=== PATIENT | male | born 1945 | race Caucasian/White ===

== ENCOUNTER 2020-10-20 11:43 | Emergency (ER) | payer MEDICARE, SELFPAY ==
[2020-10-20 11:48] VITALS: BP 104/59; PULSE 56; RESP 16; TEMP 36.6; O2SAT 95; BMI 27.3
--- NOTE | 2020-10-20 12:45 | ECG_ITS ---
[facility] Test Date: 2020-10-20 Pat Name: Reuben Casanova Department: Room: Gender: Male Machine Set Up Operator: : 1945 Requested By: Andrew Huntley Order Number: [id number] Kendrick MD: James Morales M.D. Measurements Intervals [place] Rate: 56 P: DE: QRS: -30 QRSD: 74 T: 36 QT: 402 QTc: 388 Interpretive Statements SUPRAVENTRICULAR BRADYCARDIA-possibly sinus BORDERLINE LEFT AXIS DEVIATION [QRS AXIS < -20] MODERATE VOLTAGE CRITERIA FOR LVH, CONSIDER NORMAL VARIANT [MEETS CRITERIA IN ONE OF: R(aVL), S(V1), R(V5), R(V5/V6)+S(V1)] NONSPECIFIC ST & T-WAVE ABNORMALITY ABNORMAL RHYTHM ECG INTERPRETATION BASED ON A DEFAULT AGE OF 40 YEARS Compared to ECG 02/17/2018 22:00:11 Sinus bradycardia no longer present First degree AV block no longer present T-wave abnormality still present Electronically Signed On 10-20-2020 23:47:55 CDT by James Morales M.D. [email or web address] PartnersBoutique Windowcleveland [facility].[employer]qua/store/NU/[id number] bird
--- NOTE | 2020-10-20 12:45 | XRR_ITS ---
PROCEDURE INFORMATION: Exam: XR Chest Exam date and time: 10/20/2020 1:00 PM Age: 75 years old Clinical indication: Left-sided; Patient HX: Chest pain to left x 4 days, shortness of breath TECHNIQUE: Imaging protocol: XR of the chest. Views: 1 view. COMPARISON: CT Chest/Abdomen/Pelvis w IV* 09/24/2018 10:58 AM FINDINGS: Lungs: There is consolidation in the mid left lung which extends to the pleura. The right lung is clear. Pleural spaces: Unremarkable. No pleural effusion. No pneumothorax. Heart/Mediastinum: Unremarkable. No cardiomegaly. Bones/joints: Unremarkable. XR/XR chest 1V portable [id number] IMPRESSION: There is consolidation in the mid left lung which extends to the pleura consistent with pneumonia, mass and/or infarct.If there is desire for further evaluation, a CT scan could be performed.
[2020-10-20 13:07] VITALS: PULSE 56
--- NOTE | 2020-10-20 13:08 | ED_ITS ---
HPI - Chest Pain General: Chief Complaint: Chest Pain Stated Complaint: CP X 4 DAYS Time Seen by Provider: 10/20/20 12:43 History of Present Illness: HPI narrative: 75-year-old male presents emergency room complaining of chest pain for the last 4 days. He has a known history ofChronic lymphocytic leukemia. He also is a smoker and continues to smoke daily. Patient has a known history of coronary artery disease with previous PCI. He also has history of hypertension hyperlipidemia and bradycardia. He denies any fever sweats or chills. MD complaint: chest pain Pertinent past history: coronary artery disease Onset (ago): day(s) (4) Timing of current episode: episodic Prior episodes: Yes Onset: during rest Pain location: left chest Pain radiation: none Severity: mild Quality: aching and heaviness Relieving factors: nothing Exacerbating factors: nothing Associated symptoms: Reports dyspnea; Deny abdominal pain, diaphoresis, fever(s), leg edema, nausea, palpitations, sense of impending doom, syncope or vomiting Treatment prior to arrival: none Review of Systems Const: Denies: fever(s) or diaphoresis ENMT: Denies: throat pain, ear or mastoid pain, nasal discharge or nasal congestion Card: Denies: palpitations or syncope Resp: Reports: dyspnea GI: Denies: abdominal pain, nausea or vomiting : Denies: flank pain, dysuria, urinary frequency or urinary urgency Skin/Breast: Denies: rash or pruritus PFSH ED PFSH: Medical History Aortic valve sclerosis Atherosclerotic heart disease of [place] coronary artery without angina pectoris Yen palsy Benign essential HTN Bradycardia CAD (coronary artery disease) Cervical spondylosis Chest pain DDD (degenerative disc disease) Diverticulosis Dyslipidemia GERD (gastroesophageal reflux disease) Hemorrhoids Hepatomegaly History of hypertension Hx of coronary atherosclerosis Hx of hyperlipidemia Hx of myocardial infarction NSTEMI (non-ST elevated myocardial infarction) Palpitations Surgical History H/O colonoscopy History of PTCA History of spinal fusion Family History Father CAD (coronary artery disease) Dementia Mother Cancer Brother CAD (coronary artery disease) Cancer Diabetes Stroke Sister CAD (coronary artery disease) Cancer Diabetes Family/Other CAD (coronary artery disease) Cancer Diabetes Other Hypertension Denies family history of Clotting disorder Chronic kidney disease (CKD) Suicide Anesthesia complication Bleeding disorder Lung disease Social History Smoking and tobacco status: current every day smoker cigarettes Alcohol intake: current Alcohol intake frequency: 0-2 Drinks per Day Physical Exam Const: COMMON NORMALS: no acute distress GENERAL APPEARANCE: cooperative and comfortable ORIENTATION/CONSCIOUSNESS: Yes awake, Yes oriented to person, Yes oriented to place and Yes oriented to time HENMT: COMMON NORMALS: normocephalic, atraumatic and hearing grossly normal bilaterally HEAD & SCALP: normocephalic and atraumatic Neck/C-Spine: COMMON NORMALS: no JVD Resp: COMMON NORMALS: normal respiratory effort, No retractions, No use of accessory muscles and clear to auscultation bilaterally AUSCULTATION: clear to auscultation bilaterally Cardio: COMMON NORMALS: no JVD, regular rate, regular rhythm and No murmurs present (Cardio) RATE: regular rate RHYTHM: regular rhythm GI: COMMON NORMALS: Soft to palpation and No hepatosplenomegaly present AUSCULTATION: Yes normoactive bowel sounds PALPATION: Yes Soft to palpation, No Tenderness to palpation present (GI), No Guarding due to palpation present (GI) and Yes No hepatosplenomegaly present Extremity: COMMON NORMALS: normal to inspection, capillary refill normal, no clubbing, cyanosis or edema, no calf tenderness and no pedal edema Neuro: SENSORIUM/ORIENTATION: Yes oriented to person, Yes oriented to place and Yes oriented to time Skin: COMMON NORMALS: no rashes or lesions noted GENERAL SKIN EXAM: no rashes or lesions noted Course Vital Signs: Vital signs: Vital Signs Temperature 97.9 F 10/20/20 11:48 Pulse Rate 57 L 10/20/20 15:34 Respiratory Rate 20 H 10/20/20 15:34 Blood Pressure 87/62 10/20/20 15:34 Pulse Oximetry 93 10/20/20 15:34 MDM - Chest Pain MDM Narrative: Medical decision making narrative: Cultures done start antibiotics admit for pneumonia with CLL discussed with hospitalist. Orders were written. When I discussed to the patient he absolutely refuses to be admitted I discussed the risks of him leaving early. He obviously has pneumonia and he has an acute flare of his CLL. He needs to be reevaluated by oncology concerned with his CLL and the states that it is that he will not be able to be effectively treated for pneumonia on an outpatient basis he refuses to be admitted he acknowledges the possibility of this advancing even causing . I encouraged him to stay despite all this you can he insists on leaving. He was advised he could return at any time we will gladly reevaluate and treat. Lab Data: Labs: Lab Results 10/20/20 10/20/20 10/20/20 Range/Units 13:09 13:09 13:09 WBC 320.9 H* (4.0-10.0) 10^3/ uL RBC 3.81 L (4.1-5.3) 10^6/u L Hgb 10.5 L (11.7-16.6) g/dL Hct 36.9 L (42.0-52.0) % MCV 96.9 H (80-94) fL MCH 27.6 L (28.0-34.0) pg MCHC 28.5 L (30.0-36.0) g/dL RDW 15.3 H (12.1-15.1) % Plt Count 314 (130-400) 10^3/c mm MPV 9.4 (7.4-10.4) fL Lymph % (Auto) Not Reportable [place] % (Auto) Not Reportable Lymph # (Auto) 281.2 H (0.8-4.8) 10^3/u L [place] # (Auto) Not Reportable Total Counted 100 (0-100) Atypical Lymphs % 0.0 (0-5) % Absolute Neutrophi ls 22.5 H (1.4-6.5) 10^3/c mm Segmented Neutroph ils 7 % Abs Segm Neuts (Ma n) 22.5 H (1.6-7.1) 10/cmm Band Neutrophils 0.0 % Abs Band Neuts (Ma n) 0.0 (0.0-1.2) 10^3/c mm Absolute Lymphocyt es 292.0 H (1.2-3.4) 10^3/c mm Lymphocytes (Manua l) 91 % Monocytes (Manual) 0.0 % Absolute Monocytes 0.0 L (0.1-0.6) 10^3/c mm Eosinophils (Manua l) 0 % Absolute Eosinophi ls 0.0 (0.0-0.7) 10^3/c mm Basophils (Manual) 0.0 % Absolute Basophils 0.0 (0.0-0.2) 10^3/c mm Metamyelocytes 2.0 % Platelet Estimate Normal (Normal) Sodium Cancelled Potassium Cancelled Chloride Cancelled Carbon Dioxide Cancelled Anion Gap Cancelled BUN Cancelled Creatinine Cancelled GFR Calculation Cancelled Glucose Cancelled Calculated Osmolal ity Cancelled Calcium Cancelled Total Bilirubin Cancelled AST Cancelled ALT Cancelled Alkaline Phosphata se Cancelled Creatine Kinase Cancelled Troponin T Baselin e Cancelled NT-Pro-B Natriuret Pep Cancelled Total Protein Cancelled Albumin Cancelled Globulin Cancelled 10/20/20 10/20/20 Range/Units 13:37 13:37 WBC (4.0-10.0) 10^3/ uL RBC (4.1-5.3) 10^6/u L Hgb (11.7-16.6) g/dL Hct (42.0-52.0) % MCV (80-94) fL MCH (28.0-34.0) pg MCHC (30.0-36.0) g/dL RDW (12.1-15.1) % Plt Count (130-400) 10^3/c mm MPV (7.4-10.4) fL Lymph % (Auto) [place] % (Auto) Lymph # (Auto) (0.8-4.8) 10^3/u L [place] # (Auto) Total Counted (0-100) Atypical Lymphs % (0-5) % Absolute Neutrophi ls (1.4-6.5) 10^3/c mm Segmented Neutroph ils % Abs Segm Neuts (Ma n) (1.6-7.1) 10/cmm Band Neutrophils % Abs Band Neuts (Ma n) (0.0-1.2) 10^3/c mm Absolute Lymphocyt es (1.2-3.4) 10^3/c mm Lymphocytes (Manua l) % Monocytes (Manual) % Absolute Monocytes (0.1-0.6) 10^3/c mm Eosinophils (Manua l) % Absolute Eosinophi ls (0.0-0.7) 10^3/c mm Basophils (Manual) % Absolute Basophils (0.0-0.2) 10^3/c mm Metamyelocytes % Platelet Estimate (Normal) Sodium 136 Potassium 4.4 Chloride 100 Carbon Dioxide 21 L Anion Gap 19.4 H BUN 42 H Creatinine 1.1 GFR Calculation Not Reportable Glucose 106 Calculated Osmolal ity 293 Calcium 8.6 Total Bilirubin 0.3 AST 37 ALT 42 H Alkaline Phosphata se 123 Creatine Kinase 176 Troponin T Baselin e 25 H NT-Pro-B Natriuret Pep 284 H Total Protein 7.2 Albumin 3.8 Globulin 3.4 Discharge Plan Discharge Patient Disposition: Left Against Medical Advice Clinical Impression: Pneumonia, Chronic lymphocytic leukemia B-cell type not having achieved remission Condition: Stable Prescriptions: New levofloxacin 750 mg tablet 750 mg PO DAILY 7 Days RF: 0 No Action docusate sodium [Colace] 100 mg capsule 100 mg PO DAILY RF: 0 fluticasone propionate [Flonase Allergy Relief] 50 mcg/actuation spray,suspension 1 spray intranasal DAILY RF: 0 amlodipine 10 mg tablet 10 mg PO DAILY Qty: 90 RF: 1 carvedilol [Coreg] 25 mg tablet 25 mg PO BID Qty: 180 RF: 1 clopidogrel [Plavix] 75 mg tablet 75 mg PO DAILY Qty: 90 RF: 1 lisinopril 40 mg tablet 40 mg PO DAILY Qty: 90 RF: 1 Discharge Orders: Discharge ED (Routine); Ordered 10/20/20 Ordered By: Andrew Barrera Referrals: Nadine Mathis APN [Primary Care Provider] - Discharge Diet: Usual diet Discharge Activity: Resume usual activity Patient Instructions: Opioid Safety Activity Restrictions/Additional Instructions: Chosen to leave AGAINST MEDICAL ADVICE. You may return at any time and we will gladly admit as we are recommending now. Since you are leaving with an acute flareup of your CLL and a acute pneumonia I do not believe this can be safely treated as an outpatient I cannot be certain how well you will do with the oral antibiotics. I would recommend that if you do not return to the hospital to be admitted that you follow-up with your doctor tomorrow. Coding Level of Care Code ED Java Developer for Bruce Fwbryanna Exam Comprehensive
[2020-10-20 13:11] VITALS: BP 87/62; PULSE 57; RESP 20; O2SAT 93
[2020-10-20 13:20] LABS: Hematocrit 36.9 % (42.0-52.0); Hemoglobin 10.5 g/dL (11.7-16.6); Mean Corpuscular HGB Conc 28.5 g/dL (30.0-36.0); Mean Corpuscular Hemoglobin 27.6 pg (28.0-34.0); Mean Corpuscular Volume 96.9 fL (80-94); Mean Platelet Volume 9.4 fL (7.4-10.4); Platelet Count 314 10^3/cmm (130-400); Red Blood Count 3.81 10^6/uL (4.1-5.3); Red Cell Distribution Width 15.3 % (12.1-15.1)
[2020-10-20 13:31] LABS: Slide Review Slide Review Perform
[2020-10-20 13:34] LABS: White Blood Count 320.9 10^3/uL (4.0-10.0)
[2020-10-20 14:05] LABS: Troponin(5th) Baseline 25 ng/L (0-15)
[2020-10-20 14:05] LABS: Lymphocytes # 281.2 10^3/uL (0.8-4.8)
[2020-10-20] MEDS: levofloxacin-dextrose 5 % 750 MG/150 ML PREMIX 100 MG IV (14:10)
[2020-10-20 14:14] LABS: Alanine Aminotransferase 42 U/L (0-41); Albumin Level 3.8 g/dL (3.5-5.2); Alkaline Phosphatase 123 IU/L (40-130); Anion Gap 19.4 (5-19); Aspartate Amino Transferase 37 U/L (0-40); Blood Urea Nitrogen 42 mg/dL (8-23); Calcium 8.6 mg/dL (8.5-10.5); Carbon Dioxide 21 mmol/L (22-29); Chloride 100 mmol/L (98-107); Creatine Phosphokinase 176 U/L (39-308); Globulin 3.4 g/dL (1.3-4.6); Glucose 106 mg/dL (65-115); NT Pro B Type Natriuretic Pept 284 pg/mL (0-125); Osmolality Calculated 293 mOsm/kg (285-295); Potassium 4.4 mmol/L (3.5-5.1); Sodium 136 mmol/L (136-145); Total Bilirubin 0.3 mg/dL (0.15-1.2); Total Protein 7.2 g/dL (6.6-8.7)
[2020-10-20 14:23] LABS: Absolute Segmented Neutrophil 22.5 10/cmm (1.6-7.1); Lymphocytes 91 %; Segmented Neutrophils 7 %; Total Cells Counted 100 (0-100)
[2020-10-20 14:24] LABS: Absolute Neutrophil 22.5 10^3/cmm (1.4-6.5); Eosinophils 0 %; Platelet Estimate Normal (Normal)
--- NOTE | 2020-10-20 14:45 | ECG_ITS ---
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 Measurements Intervals [place] Rate: 60 P: 74 ID: [id number] QRS: -28 QRSD: 90 T: 72 QT: 410 QTc: 410 Interpretive Statements SINUS RHYTHM WITH FIRST DEGREE AV BLOCK BORDERLINE LEFT AXIS DEVIATION [QRS AXIS < -20] MODERATE VOLTAGE CRITERIA FOR LVH, CONSIDER NORMAL VARIANT [MEETS CRITERIA IN ONE OF: R(aVL), S(V1), R(V5), R(V5/V6)+S(V1)] Compared to ECG 10/20/2020 11:54:13 First degree AV block now present T-wave abnormality no longer present Electronically Signed On 10-21-2020 0:09:28 CDT by James Morales M.D. [email or web address] Nest [email or web address].[employer],/store/OM/[id number]
[2020-10-20 15:34] VITALS: BP 87/62; PULSE 57; RESP 20; O2SAT 93
--- NOTE | 2020-10-21 10:03 | PC.NURSE ---
Attempted to contact pt to follow up and make sure pt is feeling ok and followed up with PCP. Pt daughter answered the phone and stated she was on the phone with pt asking about him and making sure he followed up with PCP today.
== END 2020-10-20 15:34 | disposition left against medical advice (07) ==
PROVIDERS: Emergency Provider Family Medicine; PCP Nurse Practitioner Family
DX: J18.9 Pneumonia, unspecified organism (principal); C91.10 Chronic lymphocytic leukemia of B-cell type not having achieved remission; Z53.21 Procedure and treatment not carried out due to patient leaving prior to being seen by health care provider; Z79.02 Long term (current) use of antithrombotics/antiplatelets; I25.10 Atherosclerotic heart disease of native coronary artery without angina pectoris; E78.5 Hyperlipidemia, unspecified; I10 Essential (primary) hypertension; I25.2 Old myocardial infarction; F17.210 Nicotine dependence, cigarettes, uncomplicated
CPT/HCPCS: 71045; 80053; 82550; 83880; 84484; 85007; 85025; 87040; 93005; 96365; 99284; J1956

== ENCOUNTER → 2021-05-10 11:35 | Outpatient (BNVA) | payer MEDICARE, SELFPAY | PROVIDERS: PCP Nurse Practitioner Family; Visit Provider Internal Medicine Cardiovascular Disease | DX: E78.5 Hyperlipidemia, unspecified (principal); R07.9 Chest pain, unspecified | CPT/HCPCS: 80061; 80076 ==

== ENCOUNTER → 2021-09-14 09:59 | Outpatient (BNVA) | payer MEDICARE, SELFPAY | PROVIDERS: PCP Nurse Practitioner Family; Visit Provider Nurse Practitioner Family | DX: I25.10 Atherosclerotic heart disease of native coronary artery without angina pectoris (principal); I10 Essential (primary) hypertension; R00.2 Palpitations; R00.1 Bradycardia, unspecified; I44.0 Atrioventricular block, first degree | CPT/HCPCS: 36415; 80048; 80061; 83880; 93005; 99214 ==

== ENCOUNTER → 2021-09-20 09:59 | Outpatient (BNVA) | payer MEDICARE, SELFPAY | PROVIDERS: PCP Nurse Practitioner Family; Visit Provider Internal Medicine Cardiovascular Disease | DX: Z53.9 Procedure and treatment not carried out, unspecified reason (principal) ==

== ENCOUNTER → 2022-01-04 15:30 | Outpatient (BNVA) | payer MEDICARE, SELFPAY | PROVIDERS: PCP Nurse Practitioner Family; Visit Provider Internal Medicine Cardiovascular Disease | DX: I25.10 Atherosclerotic heart disease of native coronary artery without angina pectoris (principal); I35.8 Other nonrheumatic aortic valve disorders; I10 Essential (primary) hypertension; E78.5 Hyperlipidemia, unspecified; F17.210 Nicotine dependence, cigarettes, uncomplicated; I25.2 Old myocardial infarction | CPT/HCPCS: 99214 ==

== ENCOUNTER 2022-01-11 08:48 | Outpatient (CLI) | payer MEDICARE, SELFPAY ==
[2022-01-11 09:31] LABS: Chol HDL Ratio 4.31 mg/dL (1.0-5.00); Cholesterol 138 mg/dL (0-200); HDL Cholesterol 32 mg/dL (60-100); LDL Cholesterol Calculated 82 mg/dL (50-129); LDL HDL Ratio 2.56 RATIO (0.00-3.22); Triglycerides 118 mg/dL (0-150)
== END 2022-01-11 08:49 | disposition home or self-care (01) ==
LOC: LAB 08:52
PROVIDERS: PCP Nurse Practitioner Family; Visit Provider Internal Medicine Cardiovascular Disease
DX: E78.5 Hyperlipidemia, unspecified (principal)
CPT/HCPCS: 80061

== ENCOUNTER → 2022-01-16 08:42 | Outpatient (BNVA) | payer MEDICARE, SELFPAY | PROVIDERS: PCP Family Medicine; Visit Provider Nurse Practitioner Family | DX: M79.631 Pain in right forearm (principal); M25.521 Pain in right elbow; Z12.5 Encounter for screening for malignant neoplasm of prostate | CPT/HCPCS: 73070; 73090; 80053; G0103 ==

== ENCOUNTER → 2022-07-10 15:49 | Outpatient (BNVA) | payer MEDICARE, SELFPAY | PROVIDERS: PCP Family Medicine; Visit Provider Internal Medicine Cardiovascular Disease | DX: R55 Syncope and collapse (principal); I25.10 Atherosclerotic heart disease of native coronary artery without angina pectoris; C91.10 Chronic lymphocytic leukemia of B-cell type not having achieved remission; I10 Essential (primary) hypertension; E78.5 Hyperlipidemia, unspecified; I35.8 Other nonrheumatic aortic valve disorders | CPT/HCPCS: 99214 ==

== ENCOUNTER → 2023-11-19 13:06 | Outpatient (BNVA) | payer MEDICARE, SELFPAY | PROVIDERS: PCP Family Medicine; Visit Provider Nurse Practitioner Family | DX: I10 Essential (primary) hypertension (principal); E78.5 Hyperlipidemia, unspecified; M25.511 Pain in right shoulder; M75.00 Adhesive capsulitis of unspecified shoulder | CPT/HCPCS: 80053; 80061; 85007; 85025 ==

== ENCOUNTER 2024-11-07 08:58 | Inpatient (IN) | payer MEDICARE, SELFPAY ==
[2024-11-07] VITALS (84 sets, daily range): BP systolic 105–170; BP diastolic 61–124; PULSE 60–139; RESP 16–32; TEMP 36.4–37.1; O2SAT 85–97; BMI 24.7
--- NOTE | 2024-11-07 09:00 | XRR_ITS ---
PROCEDURE INFORMATION: Exam: XR Chest Exam date and time: 11/07/2024 9:21 AM Age: 79 years old Clinical indication: Shortness of breath; SOB TECHNIQUE: Imaging protocol: Radiologic exam of the chest. Views: 1 view. COMPARISON: CR XR chest 1V portable [id number] 10/20/2020 1:09 PM FINDINGS: Lungs: Unremarkable. No consolidation. Pleural spaces: Unremarkable. No pleural effusion. No pneumothorax. Heart/Mediastinum: Unremarkable. No cardiomegaly. Bones/joints: Metallic orthopedic hardware is present in the cervical spine. XR/XR chest 1V portable [id number] IMPRESSION: 1. No acute findings. 2. Orthopedic hardware cervical spine
--- NOTE | 2024-11-07 09:13 | ECG_ITS ---
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1945 Requested By: Eligio Phelps Order Number: [id number] Reading MD: KRISH ALONSO Measurements Intervals [place] Rate: 120 P: 0 [place]: 0 QRS: -36 QRSD: 82 T: 83 QT: 298 QTc: 421 Interpretive Statements ATRIAL FIBRILLATION WITH RAPID VENTRICULAR RESPONSE LEFT AXIS DEVIATION [QRS AXIS < -30] POSSIBLE ANTERIOR MYOCARDIAL INFARCTION , PROBABLY OLD [30 ms Q WAVE IN V3/V4, OR R < 0.2 mV IN V4] Compared to ECG 10/20/2020 14:41:44 Myocardial infarct finding now present Sinus rhythm no longer present First degree AV block no longer present Electronically Signed On 11-07-2024 23:49:14 CDT by KRISH ALONSO [id number]
[2024-11-07 09:29] LABS: Hematocrit 27.8 % (37-53); Mean Corpuscular HGB Conc 23.7 g/dL (30-55); Mean Corpuscular Hemoglobin 26.6 pg (27-33); Mean Corpuscular Volume 112.1 fl (82-101); Mean Platelet Volume 9.6 fL (7.4-10.4); Platelet Count 174 10^3/cmm (157-399); Red Blood Count 2.48 10^6/uL (3.85-5.65)
--- NOTE | 2024-11-07 09:32 | ED_ITS ---
HPI - SOB/Dyspnea 2 General: Chief Complaint: Shortness of Breath/Dyspnea Stated Complaint: trouble breathing Time Seen by Provider: 11/07/24 09:07 Source: patient Limitations: no limitations History of Present Illness: HPI Narrative: 79-year-old male history of smoking stat es that over the last 4 to 5 days been having some increasing shortness of breath especially exertion had a mild cough along with wheezing as well. No known history of COPD he denies any chest pain denies any fevers. Associated symptoms: Deny abdominal pain, chest pain, fever(s), nausea or vomiting Related Data Home Medications ?Medication ?Instructions ?Recorded ?Confirmed No Known Home Medications 11/07/2412/25 Allergies Allergy/AdvReac Type Severity Reaction Status Date / Time No Known Allergies Allergy Verified 07/10/22 12:50 Review of Systems 2 Const: Denies: fever(s), chills, body aches or change in appetite ENMT: Denies: throat pain or dental pain Card: Denies: chest pain Resp: Reports: dyspnea and wheezing GI: Denies: abdominal pain, nausea, vomiting or diarrhea Musc: Denies: neck pain or back pain Skin/Breast: Denies: rash Neuro: Denies: headache(s) PFSH ED 2 PFSH: Medical History Atherosclerotic heart disease of [place] coronary artery without angina pectoris Benign essential HTN Dyslipidemia History of hypertension Bradycardia Hx of hyperlipidemia CAD (coronary artery disease) Hepatomegaly DDD (degenerative disc disease) Hx of myocardial infarction Palpitations Cervical spondylosis Chest pain GERD (gastroesophageal reflux disease) NSTEMI (non-ST elevated myocardial infarction) Yen palsy Hx of coronary atherosclerosis Aortic valve sclerosis Diverticulosis Hemorrhoids Surgical History History of PTCA History of spinal fusion H/O colonoscopy Family History Father CAD (coronary artery disease) Dementia Mother Cancer Brother CAD (coronary artery disease) Cancer Diabetes Stroke Sister CAD (coronary artery disease) Cancer Diabetes Family/Other CAD (coronary artery disease) Cancer Diabetes Other Hypertension Denies family history of Clotting disorder Chronic kidney disease (CKD) Suicide Anesthesia complication Bleeding disorder Lung disease Social History Smoking and tobacco/nicotine status: unknown if used tobacco/nicotine Alcohol intake: current Alcohol intake frequency: 0-2 Drinks per Day Substance/Drug Use: never Physical Exam 2 Const: COMMON NORMALS: patient oriented x3 HENMT: COMMON NORMALS: normocephalic and atraumatic HEAD & SCALP: n ormocephalic and atraumatic Eye: COMMON NORMALS: conjunctivae normal CONJUNCTIVA: Yes conjunctivae normal Neck/C-Spine: COMMON NORMALS: full ROM and supple Chest: COMMONS NORMALS: normal inspection of the chest Resp: COMMON NORMALS: normal respiratory effort, No retractions and No use of accessory muscles AUSCULTATION: wheezes Cardio: COMMON NORMALS: No murmurs present (Cardio) RATE: tachycardic R HYTHM: abnormal rhythm irregularly irregular GI: COMMON NORMALS: Normal to inspection, nondistended, normoactive bowel sounds present, Soft to palpation, non-tender and no masses PALPATION: Yes Soft to palpation Extremity: COMMON NORMALS: normal to inspection and full ROM Neuro: COMMON NORMALS: patient oriented x3, moves all extremities and no focal motor deficits Psych: COMMON NORMALS: mental status grossly normal, Normal thought process present and cooperative THOUGHT PROCESS: Normal thought process present Skin: COMMON NORMALS: no rashes or lesions noted and no wounds GENERAL SKIN EXAM: no rashes or lesions noted Course 2 Vital Signs: Vital signs: Vital Signs Temperature 97.6 F 11/07/24 09:06 Pulse Rate 115 H 11/07/24 10:08 Respiratory Rate 18 11/07/24 10:08 Blood Pressure 133/93 11/07/24 10:08 Pulse Oximetry 91 11/07/24 10:08 Oxygen Delivery Me thod Nasal Cannula 11/07/24 10:08 Oxygen Flow Rate 2 11/07/24 10:08 MDM - SOB/Dyspnea Medical Decision Making Patient presents for shortness of breath does have wheezing likely has undiagnosed COPD or bronchitis is a longtime smoker he is requiring oxygen here did give him breathing treatment along with steroids. He does have a history of CLL he is anemic we will transfuse he is in A-fib with RVR start him on amiodarone spoke to the hospitalist will admit at this time. Medical Records I reviewed the patient's medical records. Lab Data I reviewed the patient's lab results. 11/07/24 09:20 11/07/24 09:20 Labs/Radiology: Radiology Impressions Chest X-Ray 11/07/24 09:00 IMPRESSION: 1. No acute findings. 2. Orthopedic hardware cervical spine Laboratory Results WBC 673.12 10^3/uL (3.29-11.43) H* 11/07/24 09:20 RBC 2.48 10^6/uL (3.85-5.65) L 11/07/24 09:20 Hgb 6.60 g/dL (11.27-16.99) L 11/07/24 09:20 Hct 27.8 % (37-53) L 11/07/24 09:20 MCV 112.1 fl (82-101) H 11/07/24 09:20 MCH 26.6 pg (27-33) L 11/07/24 09:20 MCHC 23.7 g/dL (30-55) L 11/07/24 09:20 RDW Not Reportable 11/07/24 09:20 Plt Count 174 10^3/cmm (157-399) 11/07/24 09:20 MPV 9.6 fL (7.4-10.4) 11/07/24 09:20 Lymph % (Auto) Not Reportable 11/07/24 09:20 [place] % (Auto) Not Reportable 11/07/24 09:20 Lymph # (Auto) Not Reportable 11/07/24 09:20 [place] # (Auto) Not Reportable 11/07/24 09:20 Total Counted 100 (0-100) 11/07/24 09:20 Atypical Lymphs % 94.0 % (0-5) H 11/07/24 09:20 Absolute Neutrophils 20.2 10^3/cmm (1.4-6.5) H 11/07/24 09:20 Segmented Neutrophils 1 % 11/07/24 09:20 Band Neutrophils 2.0 % 11/07/24 09:20 Absolute Lymphocytes 652.9 10^3/cmm (1.2-3.4) H 11/07/24 09:20 Lymphocytes (Manual) 3 % 11/07/24 09:20 Monocytes (Manual) 0.0 % 11/07/24 09:20 Absolute Monocytes 0.0 10^3/cmm (0.1-0.6) L 11/07/24 09:20 Eosinophils (Manual) 0 % 11/07/24 09:20 Absolute Eosinophils 0.0 10^3/cmm (0.0-0.7) 11/07/24 09:20 Basophils (Manual) 0.0 % 11/07/24 09:20 Absolute Basophils 0.0 10^3/cmm (0.0-0.2) 11/07/24 09:20 Platelet Estimate Decreased (Normal) 11/07/24 09:20 PT 14.10 SECONDS (12.1-14.9) 11/07/24 09:20 INR 1.02 (0.8-1.2) 11/07/24 09:20 Sodium 139 mmol/L (136-145) 11/07/24 09:20 Potassium 4.5 mmol/L (3.5-5.1) 11/07/24 09:20 Chloride 108 mmol/L (98-107) H 11/07/24 09:20 Carbon Dioxide 19 mmol/L (22-29) L 11/07/24 09:20 Anion Gap 16.5 (5-19) 11/07/24 09:20 BUN 22 mg/dL (8-23) 11/07/24 09:20 Creatinine 0.9 mg/dL (0.7-1.2) 11/07/24 09:20 GFR Calculation Not Reportable 11/07/24 09:20 Glucose 141 mg/dL (65-115) H 11/07/24 09:20 Calculated Osmolality 294 mOsm/kg (285-295) 11/07/24 09:20 Calcium 9.4 mg/dL (8.5-10.5) 11/07/24 09:20 Total Bilirubin 0.5 mg/dL (0.15-1.2) 11/07/24 09:20 AST 19 U/L (0-40) 11/07/24 09:20 ALT 12 U/L (0-41) 11/07/24 09:20 Alkaline Phosphatase 152 U/L (40-130) H 11/07/24 09:20 NT-Pro-B Natriuret Pep 2396 pg/mL (0-450) H 11/07/24 09:20 Total Protein 6.5 g/dL (6.6-8.7) L 11/07/24 09:20 Albumin 4.2 g/dL (3.5-5.2) 11/07/24 09:20 Globulin 2.3 g/dL (1.3-4.6) 11/07/24 09:20 Crossmatch See Detail 11/07/24 10:28 All radiology interpretation(s) finalized by discharge Critical Care Time 2 Critical Care Time: Critical Care Time: Yes Total Critical Care Time: 40 Attestation: The high probability of a clinically significant, sudden or life threatening deterioration of the patient's cv/resp system(s) required my full and direct attention, intervention and personal management. The critical care time is as shown. This time is in addition to time spent performing any reported procedures but includes the following: [x] Data and vital sign review and interpretation [x] Patient assessment, examination and intervention [x] Documentation [x] Medication orders and management Discharge Plan Discharge Patient Disposition: Admitted As Inpatient Clinical Impression: Atrial fibrillation with RVR, Anemia, Acute respiratory failure with hypoxia Condition: Stable Coding Level of Care Code ED Director Digital Communications for Bruce Aggarwal
[2024-11-07 09:42] LABS: INR 1.02 (0.8-1.2)
[2024-11-07] MEDS: ipratropium-albuterol 3 mL Neb INHALATION ×4 (09:46→19:15)
[2024-11-07 09:59] LABS: Alanine Aminotransferase 12 U/L (0-41); Albumin Level 4.2 g/dL (3.5-5.2); Alkaline Phosphatase 152 U/L (40-130); Anion Gap 16.5 (5-19); Aspartate Amino Transferase 19 U/L (0-40); Blood Urea Nitrogen 22 mg/dL (8-23); Calcium 9.4 mg/dL (8.5-10.5); Carbon Dioxide 19 mmol/L (22-29); Chloride 108 mmol/L (98-107); Creatinine Clr Calc Pharmacy 57.8873; Globulin 2.3 g/dL (1.3-4.6); Glucose 141 mg/dL (65-115); NT Pro B Type Natriuretic Pept 2396 pg/mL (0-450); Osmolality Calculated 294 mOsm/kg (285-295); Potassium 4.5 mmol/L (3.5-5.1); Sodium 139 mmol/L (136-145); Total Bilirubin 0.5 mg/dL (0.15-1.2); Total Protein 6.5 g/dL (6.6-8.7)
[2024-11-07] MEDS: methylPREDNISolone sod succ 125 mg/2 mL INJ IVP (10:02)
[2024-11-07 10:14] LABS: Absolute Segmented Neutrophil 6.7 10/cmm (1.6-7.1); Band Neutrophils Absolute 13.5 10^3/cmm (0.0-1.2); Eosinophils 0 %; Lymphocytes 3 %; Lymphocytes Absolute 652.9 10^3/cmm (1.2-3.4); Segmented Neutrophils 1 %; Slide Review Slide Review Perform; Total Cells Counted 100 (0-100)
[2024-11-07 10:15] LABS: Absolute Neutrophil 20.2 10^3/cmm (1.4-6.5); Platelet Estimate Decreased (Normal)
--- NOTE | 2024-11-07 10:15 | PC.PHAR ---
Pts' family states pt stopped all medications last year. Removed from chart are the following: Amlodipine 10mg daily 07/18/23 Plavix 75mg daily 10/01/22 Lasix 40mg dfaily prn 09/14/21 Lisinopril 40mg daily 07/12/24 Meloxicam 15mg daily 11/19/23 Crestor 10mg daily 07/18/23
[2024-11-07 10:17] LABS: White Blood Count 673.12 10^3/uL (3.29-11.43)
[2024-11-07] MEDS: amiodarone 150 MG/100 ML PREMIX 400 MG IV (10:32)
--- NOTE | 2024-11-07 15:31 | P.HP_ITS ---
Providers/Chief Complaint 2 Admitting Physician: Ivana Joseph MD Primary Care Provider: Darya Torres MD Chief Complaint: trouble breathing History of Present Illness Mr Reuben Casanova is a 79 year old male 79-year-old male past medical history of tobacco use, CLL, hypertension, CAD who presents for further evaluation of worsening shortness of breath of about 4 days. He also reports some cough and some wheezing and feeling hot. He denies fever, nausea, vomiting, abdominal pain, leg swelling or any other symptoms. In the ER, chest x-ray was negative for any acute process. Labs significant for WBC of [id number]. Hemoglobin of 6.6. He was also noted to be hypoxic requiring 4 L supplemental oxygen. He was also noted to have atrial fibrillation with RVR and was he given amiodarone. Review of Systems 2 General: Reports: 10 or more systems reviewed and unremarkable except in HPI and below Const: Denies: fever(s) or chills Eyes: Denies: change in vision ENMT: Denies: throat pain Card: Denies: chest pain Resp: Reports: dyspnea, non-productive cough and wheezing GI: Denies: abdominal pain, nausea or vomiting : Denies: difficulty urinating Medications/Allergies Home Medications ?Medication ?Instructions ?Recorded ?Confirmed ?Last Taken ?Type No Known Home Medications 11/07/2412/25 Unknown History Allergies Allergy/AdvReac Type Severity Reaction Status Date / Time No Known Allergies Allergy Verified 07/10/22 12:50 PFSH Acute 2 PFSH: Medical History Atherosclerotic heart disease of [place] coronary artery without angina pectoris Benign essential HTN Dyslipidemia History of hypertension Bradycardia Hx of hyperlipidemia CAD (coronary artery disease) Hepatomegaly DDD (degenerative disc disease) Hx of myocardial infarction Palpitations Cervical spondylosis Chest pain GERD (gastroesophageal reflux disease) NSTEMI (non-ST elevated myocardial infarction) Yen palsy Hx of coronary atherosclerosis Aortic valve sclerosis Diverticulosis Hemorrhoids Surgical History History of PTCA History of spinal fusion H/O colonoscopy Family History Father CAD (coronary artery disease) Dementia Mother Cancer Brother CAD (coronary artery disease) Cancer Diabetes Stroke Sister CAD (coronary artery disease) Cancer Diabetes Family/Other CAD (coronary artery disease) Cancer Diabetes Other Hypertension Denies family history of Clotting disorder Chronic kidney disease (CKD) Suicide Anesthesia complication Bleeding disorder Lung disease Social History Smoking and tobacco/nicotine status: unknown if used tobacco/nicotine Alcohol intake: current Alcohol intake frequency: 0-2 Drinks per Day Substance/Drug Use: never Vitals/I&O/Wt Last Vital Signs Temp 97.8 F 11/07/24 14:20 Pulse 119 H 11/07/24 15:05 Resp 25 H 11/07/24 15:05 BP 131/93 11/07/24 15:05 Pulse Ox 90 11/07/24 15:05 O2 Del Method Room Air 11/07/24 12:06 O2 Flow Rate 2 11/07/24 10:08 11/07/24 11/07/24 11/07/24 06:59 14:59 22:59 Intake Total 100 / 100 Balance 100 / 100 Weight last 48 hrs Weight 63.503 kg Physical Exam 2 Narrative: General -Awake, alert , chronically ill-appearing, wearing nasal cannula HEENT-normocephalic, atraumatic, neck is supple Lungs-Diminished breath sounds bilaterally, mild expiratory wheezes, no crackles CVS -S1-S2, regular rate and rhythm Abdomen -soft, nontender, normal bowel sounds SKIn - Rash Extremities-no pedal edema Neurology -no gross focal deficits Data 11/07/24 09:20 11/07/24 09:20 A&P Assessment and plan (1) Acute respiratory failure with hypoxia: (2) Anemia: (3) Atrial fibrillation with RVR: (4) Chronic lymphocytic leukemia B-cell type not having achieved remission: (5) Dyslipidemia: Plan # History of untreated CLL - Patient with history of untreated CLL presents today and was found to have significantly elevated WBC concerning for leukostasis - Discussed with oncologist at [facility], will plan to transfer patient for further management # Shortness of breath # Acute hypoxic respiratory failure # Suspected COPD exacerbation - Patient also has shortness of breath and was found to be hypoxic -There is suspicion for COPD excaerbation in the setting of significant smoking history -In the setting of symptomatic elevated WBC other differentials also possible -He has elevated D-dimer -Will get CT chest for further evaluation - Solu-Medrol, budesonide, empiric antibiotics -Check covid, flu screen # Acute on chronic anemia - In the setting of CLL - Patient has normal platelets - No evidence of gross active GI bleeding - Patient is receiving blood transfusion # Atrial fibrillation with RVR-new onset - Patient received amiodarone in the ER and converted to normal sinus rhythm - Amiodarone currently discontinued - Continue to monitor -Start metoprolol DVT ppx - ICDs PDMP PDMP Reviewed: Not Reviewed Attestations 2 Medical Necessity Statement*: Patient admitted to inpatient status for respiratory failure. Pending transfer to [facility] Coding Level of Care Code Acute Code for [facility] Fwd Diagnoses Acute respiratory failure with hypoxia J96.01 Anemia D64.9 Atrial fibrillation with RVR I48.91 Chronic lymphocytic leukemia B-cell type not having achieved remission C91.10 Dyslipidemia E78.5
[2024-11-07 15:59] LABS: Reflex FDPQ test REFLEX FDP QUEST TES
[2024-11-07 16:14] LABS: INR 1.05 (0.8-1.2)
[2024-11-07 16:15] LABS: Partial Thromboplastin Time 34.1 SECONDS (23.9-36.7)
[2024-11-07 16:16] LABS: Fibrinogen 290 mg/dL (174-498)
[2024-11-07] MEDS: sodium chloride 0.9% 1,000 ML 75 ML IV (16:52)
[2024-11-07 18:17] LABS: Influenza A NEGATIVE (Negative); Influenza B NEGATIVE (Negative); Respiratory Syncytial Virus Ce NEGATIVE (Negative); SARS-CoV-2 PCR NEGATIVE (Negative)
[2024-11-07] MEDS: methylPREDNISolone sod succ 40 mg/mL INJ IVP (18:22)
--- NOTE | 2024-11-07 18:40 | CTR_ITS ---
PROCEDURE INFORMATION: Exam: CTA Chest With Contrast Exam date and time: 11/07/2024 10:03 PM Age: 79 years old Clinical indication: Abnormal findings; Abnormal diagnostic tests; Elevated d-dimer; Shortness of breath; Prior surgery; Surgery date: 6+ months; Surgery type: Coronary stent; SOB with dimer of 1.30. History of leukemia. ; Additional info: Evaluate for pe TECHNIQUE: Imaging protocol: Computed tomographic angiography of the chest with contrast. Exam focused on the arteries. 3D rendering (Not supervised by radiologist): MIP and/or 3D reconstructed images were created by the technologist. Radiation optimization: All CT scans at this facility use at least one of these dose optimization techniques: automated exposure control; mA and/or kV adjustment per patient size (includes targeted exams where dose is matched to clinical indication); or iterative reconstruction. Contrast material: OMNI 350; Contrast volume: 74 ml; Contrast route: INTRAVENOUS (IV); COMPARISON: CR (CHEST, ) 11/07/2024 9:21 AM RADIATION DOSE METRICS: Total DLP (mGy-cm): 387.59 FINDINGS: Pulmonary arteries: Pulmonary artery opacification is excellent. No pulmonary embolism. Aorta: No thoracic aortic aneurysm. Other arteries: Calcified atherosclerosis. Lungs: [id number] pulmonary edema. Calcified left lower lobe lung nodule likely an old granuloma. Pleural spaces: Small bilateral pleural effusions with atelectasis. Heart: Mild cardiomegaly. Coronary arteries: Coronary calcifications. Lymph nodes: Enlarged lymph nodes including in the mediastinum, axillary, and subpectoral stations as well as the lower neck, for example in the left axillary station measuring up to 1.7 cm. Bones/joints: Partially visualized cervical spine hardware. Soft tissues: Unremarkable. CT/CT angio chest PE protcl [id number] IMPRESSION: 1. No pulmonary embolism. 2. Moderate pulmonary edema. Small pleural effusions. Mild cardiomegaly. 3. Enlarged lymph nodes, consistent with reported history of leukemia.
[2024-11-07] MEDS: cefepime 1,000 mg SDV 1000 MG IVP (20:08)
[2024-11-07] MEDS: vancomycin 1,250 MG/250 ML PIGGYBACK 250 MG IV (20:27)
[2024-11-07] MEDS: metoprolol tartrate 25 mg Tablet 12.5 MG PO (20:30)
[2024-11-07] MEDS: iohexol 350 mg/mL 500 mL Btl (per mL) IV (22:04)
[2024-11-08] MEDS: methylPREDNISolone sod succ 40 mg/mL INJ IVP (01:04)
[2024-11-08 01:53] VITALS: PULSE 60; RESP 22; O2SAT 91
[2024-11-08] MEDS: ipratropium-albuterol 3 mL Neb INHALATION (01:53)
[2024-11-08 01:59] VITALS: PULSE 59
[2024-11-08] MEDS: ketorolac 30 mg/mL INJ IVP (02:02)
[2024-11-08] MEDS: cefepime 1,000 mg SDV 1000 MG IVP (02:17)
[2024-11-08 03:08] VITALS: BP 122/72; PULSE 60; RESP 26; TEMP 36.4; O2SAT 91
[2024-11-08 03:15] VITALS: BP 122/72; PULSE 60; RESP 22; TEMP 24.8; O2SAT 91
== END 2024-11-08 03:17 | disposition home or self-care (01) | DRG 189 ==
LOC: ER 11:08 → ER IP 14:25 → CSU 15:40
PROVIDERS: Admitting Provider Student in an Organized Health Care Education/Training Program; Emergency Provider Emergency Medicine; PCP Family Medicine; Visit Provider Student in an Organized Health Care Education/Training Program
DX: J96.01 Acute respiratory failure with hypoxia (principal); C91.10 Chronic lymphocytic leukemia of B-cell type not having achieved remission; J44.1 Chronic obstructive pulmonary disease with (acute) exacerbation; D63.1 Anemia in chronic kidney disease; I48.91 Unspecified atrial fibrillation; E78.5 Hyperlipidemia, unspecified; I10 Essential (primary) hypertension; I25.10 Atherosclerotic heart disease of native coronary artery without angina pectoris; K21.9 Gastro-esophageal reflux disease without esophagitis; I25.2 Old myocardial infarction; Z87.891 Personal history of nicotine dependence
CPT/HCPCS: 36430; 71045; 71275; 80053; 83880; 85007; 85025; 85362; 85378; 85384; 85610; 85730; 86850; 86900; 86920; 87637; 93005; 94640; 96365; 96366; 96375; 99285; A4222; J0283; J0692; J1885; J2919; J3370; J7030; J9999; P9016

== ENCOUNTER → 2025-05-13 09:30 | Outpatient (BNVA) | payer MEDICARE, SELFPAY | PROVIDERS: PCP Clinical Nurse Specialist Adult Health; Visit Provider Clinical Nurse Specialist Adult Health | DX: E11.8 Type 2 diabetes mellitus with unspecified complications (principal) | CPT/HCPCS: 80053; 80061; 82607; 83036; 85025 ==